=== PATIENT | male | born 1960 | race Caucasian/White ===

== ENCOUNTER → 2024-02-27 13:57 | Outpatient (REF) | payer OTHER, SELFPAY | LOC: CLAB 13:57 | PROVIDERS: ATTENDING PHYSICIAN Otolaryngology | DX: C18.1 Malignant neoplasm of appendix (principal) | CPT/HCPCS: 88305 ==

== ENCOUNTER 2024-04-29 08:48 | Emergency (ER) | payer OTHER, SELFPAY ==
[2024-04-29 09:00] VITALS: BP 126/89
== END 2024-04-29 11:07 ==
LOC: EMR 08:48
PROVIDERS: EMERGENCY PHYSICIAN Student in an Organized Health Care Education/Training Program
DX: I49.1 Atrial premature depolarization (principal); Z53.21 Procedure and treatment not carried out due to patient leaving prior to being seen by health care provider
CPT/HCPCS: 93005

== ENCOUNTER → 2024-05-20 07:06 | Outpatient (REF) | payer OTHER, SELFPAY | LOC: RCS 07:06 | PROVIDERS: ATTENDING PHYSICIAN Nurse Practitioner; FAMILY PHYSICIAN Family Medicine | DX: I48.0 Paroxysmal atrial fibrillation (principal); R42 Dizziness and giddiness | CPT/HCPCS: 93306 ==

== ENCOUNTER 2024-10-12 10:22 | Day surgery (SDC) | payer OTHER, SELFPAY ==
[2024-09-27 08:11] VITALS: BMI 22.8
--- NOTE | 2024-09-27 08:55 | HPS.HSE ---
Family Physician
-
Family Physician: Mary Ken MD
Chief Complaint
-
Paroxysmal atrial fibrillation.
History of Present Illness
The patient is a 63 year old male presenting today for paroxysmal atrial fibrillation. The patient reports symptoms such as disturbing palpitations and occasional shortness of breath likely secondary to this diagnosis. He previously
underwent a cardioversion in 2011 for his arrhythmia. A 5 day Bardy monitor in April 2024 revealed a 2.8% atrial fibrillation burden. He is currently on pharmacological therapy with Diltiazem. He reports compliance with Xarelto for oral
anticoagulation. He notes that his symptoms associated with his atrial fibrillation greatly interfere with his activities of daily living and overall impact his quality of life. He is interested in pursuing pulmonary vein isolation for more
definitive arrhythmia management. He denies any current complaints today such as chest pain, shortness of breath at rest, nausea, vomiting, diarrhea, lightheadedness, dizziness, cough, sore throat, or fever.
Medical History
Past Medical History
Past Medical History: Reports Other
Additional Past Medical History:
1. Paroxysmal atrial fibrillation, status post cardioversion 2011; pharmacological therapy with Diltiazem and oral anticoagulation with Xarelto.
2. PACs.
3. Hypertension.
4. Hyperlipidemia.
5. Coronary artery disease per chest CT 07/2011.
6. Lumbar degenerative disc disease.
7. Squamous cell carcinoma, status post multiple excisions.
8. Current tobacco abuse.
9. Previous daily alcohol use.
Past Surgical History: Reports Other
Additional Past Surgical History:
1. Cardioversion.
2. Squamous cell carcinoma excision x3.
3. Bilateral cataract surgery.
4. Bilateral lens implantation.
5. [place] teeth extraction.
6. Dental extraction.
7. Colonoscopy x2.
Social History
Tobacco: Smoker (He is a current less than 1 pack per day cigarette smoker. He has been smoking over the past 40 years. )
Alcohol: Other (He has a previous history of daily alcohol use. As of today, he reports rare alcohol use. )
Personal:
Living: Other (He lives with his and son in a ranch style home with a basement. )
Family History
Family History: Other (He reportedly has a family history of atrial fibrillation. )
Allergies / Home Medications
Allergy/Medication List:
Home medications:
1. Ascorbic acid 500 mg p.o. daily.
2. Atorvastatin 10 mg p.o. every evening.
3. Cholecalciferol 75 mcg p.o. daily.
4. Diltiazem HCl 120 mg p.o. twice a day.
5. Diltiazem HCl 60 mg p.o. as directed by physician.
6. Lisinopril 20 mg p.o. daily.
7. Multivitamin 1 tablet p.o. daily.
8. Xarelto 20 mg p.o. at bedtime.
Allergies: No known allergies.
Review of Systems
-
A 12 point ROS was completed and negative except as noted: Yes
Physical Exam
Vital Signs
Blood pressure 146/76. Heart rate 68. Respirations 18. Pulse ox 98% on room air.
Height 5 feet, 9 inches. Weight 70.1 kg. BMI 22.8.
Physical Exam
General: Well Developed, Well Nourished and No Apparent Distress
HEENT: NormoCephalic, Moist mucous membranes, Atraumatic and PERRLA
Respiratory: Clear
Cardiac: Regular Rhythm
GI: Soft, Non Tender and Non Distended
Musculoskeletal: No Edema and Normal Gait & Station
Skin: Warm and Dry
Neuro: AO x 3 and Nonfocal/grossly intact
Laboratory Results
-
DIAGNOSTIC STUDIES as of 09/27/2024: White blood cell count 9.0. Hemoglobin 14.5. Platelet count 304,000. PT 16.6. INR 1.31. Sodium 140. Potassium 4.4. BUN 11. Creatinine 0.6. Glucose 92. Calcium 9.6. Magnesium 2.2. AST 23. ALT 20. Albumin 4.5. Type
and screen A positive.
EKG 09/27/2024: Normal sinus rhythm.
Chest CT 09/27/2024: Short segment common vestibule for the left superior and inferior pulmonary veins, fairly commonly seen and considered normal variant. No evidence for left atrial thrombus.
Echocardiogram 05/20/2024: Technically difficult study with poor visualization of the endocardium. Grossly normal left ventricular size and systolic function without regional wall motion abnormalities. Estimated left ventricular ejection fraction is
55 to 60% by visual estimation. No significant valvular abnormalities. No pericardial effusion.
Impression/Plan
-
IMPRESSION/PLAN:
1. Paroxysmal atrial fibrillation: The patient is in need of pulmonary vein isolation with Dr. Corby Johnson on 10/12/2024. The benefits and risks of the procedure have been explained to the patient. The patient understands these risks and wishes to
proceed. He will not be required to undergo a pre-procedural transesophageal echocardiogram as he has been compliant with his home oral anticoagulation. He is aware to continue his Xarelto up until the night prior to his procedure. He will take no
medications the morning of his ablation.
2. Current tobacco abuse: Smoking cessation was provided to the patient pre-operatively. He is aware that continue tobacco use will only induce his atrial fibrillation episodes further. The patient expressed understanding.
[2024-09-27 09:06] LABS: % Basophils 0.6 % (0-2); % Eosinophils 2.7 % (0-6); % Immature Granulocytes 0.4 % (0-0.5); % Lymphocytes 26.9 % (20.5-51.1); % Neutrophils 61.4 % (42.2-75.2); Absolute Basophils 0.1 10^3/uL (0-0.2); Absolute Eosinophils 0.2 10^3/uL (0-0.7); Absolute Lymphocytes 2.4 10^3/uL (1.2-3.4); Absolute Monocytes 0.7 10^3/uL (0.1-0.6); Absolute Neutrophils 5.5 10^3/uL (1.4-6.5); Hematocrit 42.1 % (39.0-52.0); Hemoglobin 14.5 g/dL (13.0-18.0); Mean Corp Hgb Conc. 34.4 g/dL (33.0-37.0); Mean Corpuscular Hgb 32.4 pg (27.0-31.0); Mean Platelet Volume 10.1 fL (7.4-10.4); Nucleated Red Blood Cells % 0 % (-); Platelet Count 304 10^3/uL (130-400); Red Blood Cell Count 4.48 10^6/uL (4.70-6.10); Red Cell Dist. Width 12.6 % (11.5-14.5)
[2024-09-27 09:18] LABS: ALT (SGPT) 20 U/L (0-50); AST (SGOT) 23 U/L (17-59); Albumin 4.5 g/dl (3.5-5.0); Alkaline Phosphatase 98 U/L (38-126); Blood Urea Nitrogen 11 mg/dl (9-20); Calcium 9.6 mg/dl (8.4-10.2); Carbon Dioxide 28 mmol/L (22-30); Chloride 108 mmol/L (98-107); Estimated Creatinine Clearance 123 ml/min; Glucose 92 mg/dl (70-99); Magnesium 2.2 mg/dl (1.6-2.3); Potassium 4.4 mmol/L (3.5-5.1); Sodium 140 mmol/L (135-145); Total Bilirubin 0.7 mg/dl (0.2-1.3); Total Protein 7.1 g/dl (6.3-8.2); eGFR > 60.00
[2024-09-27 09:53] LABS: INR 1.31; PT 16.6 Sec (11.4-14.6)
[2024-10-12] VITALS (11 sets, daily range): BP systolic 119–143; BP diastolic 61–81
[2024-10-12 13:39] LABS: ACT-LR - POC 294 Seconds (116-155)
--- NOTE | 2024-10-12 14:00 | ITS.CL.ABL ---
[facility] - Ablation
Ablation
Procedure Report:
ELECTROPHYSIOLOGY ABLATION STUDY
DATE:: October 12, 2024�����������������������������REFERRING: Dr. Doron Johnson
INDICATION: Paroxysmal supraventricular tachycardia in the form of atrial fibrillation.��Refractory to diltiazem
HISTORY: See H and P.��As above
ANTIARRHYTHMIC DRUG: Diltiazem
PRE-PROCEDURE TERI: No atrial thrombus
PRESENTING RHYTHM: Sinus rhythm
'TIME-OUT':��called and confirmed.
SEDATION/ANESTHESIA:��provided via the anesthesia department using general anesthesia (LMA).
INTRAVENOUS/ARTERIAL ACCESS:
Right femoral venous - 8Fr
Left femoral venous - 8 Fr, 6 Fr
[id number] suture was applied to the right femoral and left femoral veins.
Ultrasound guidance for bilateral femoral vein access was utilized by me to obtain access with demonstration of normal anatomy
CHADS-VASC Score:
HAS-Bled Score
PROCEDURE:
1.��A decapolar CS catheter was placed within the CS for mapping and pacing.��This was also used as the reference catheter for the 3-D map.
2. The intracardiac ultrasound catheter was positioned in the RA to identify the FO for targeting of transseptal puncture, assist��in identification of the pulmonary vein ostia, monitoring pre and post ablation pulmonary vein flow velocities,
monitoring for 'bubble' formation during RF application as a sign of thermal injury,��and to monitor for pericardial effusion during mapping and ablation procedure.���Left atrial size, LV ejection fraction, and pulmonary vein flows were monitored
pre and post ablation procedure. The other valves were inspected and found to be free of significant regurgitation or stenosis.
3.��Half of the calculated heparin bolus was administered prior to the first transeptal puncture.��Transseptal puncture was performed to diagnose RA and LA pressure so that safety of LA mapping and ablation could be further assessed, and to access
the left atrium and pulmonary veins for mapping and ablation.��This entailed advancing an 8 Fr SL-1 sheath with dilator into the superior vena cava and withdrawing both (monitoring intracardiac ultrasound, fluoroscopy and tip pressure) with the tip
oriented toward the atrial septum.��The fossa ovalis was engaged (indicated by sudden displacement of the sheath tip as well as tenting of the fossa seen on intracardiac ultrasound).��Left atrial access required a pass with the [place] needle
extended.��Left atrial catheter position was confirmed by pressure monitoring (RA mean pressure 4 mm Hg and LA mean presure 8 mm Hg), LA saturation (99%),��as well as fluoroscopy.��The sheath was advanced over the dilator and positioned in the left
atrium.��This procedure was repeated for the Agilis sheath.��The remainder of the calculated heparin bolus was administered and heparin was
infused to maintain ACT at 300 -350 seconds throughout the case.
4.��RA pacing was performed via the proximal decapolar poles and LA pacing was performed via the distal decapolar poles.
5. A quadrapolar catheter was first positioned at the His position for His Bundle recording which was tagged via the 3-D Navex sytem, and then passed to the RVA for RV pacing and recording.
6. The grid catheter and the Penta spline catheter were placed in each of the LIPV, LSPV, RSPV and the RIPV.��
7.��Next, a 3-D map was created using Navex.���A 3-D reconstructed CT image was compared to the 3-D Navex map to assist in anatomic interpretation, mapping and ablation.��The CT image and the NavX image were fused.
8. 49 lesions were given in all of in basket post each of the 4 pulmonary veins and flower post to the roofline posterior wall substrate and floor line in the left atrium. Entrance and exit block was confirmed in sinus rhythm in all 4 pulmonary
veins as well as the roof posterior wall and floor proper. EP study post isolation did not demonstrate any inducible tachyarrhythmias.
9. Normal sinus node even function noted.
TOTAL FLOURO TIME: 12.1 minutes 120 mGy
TOTAL RF DURATION: 0 minutes
REVERSAL OF HEPARIN: 30 mg of protamine, slow IV administration
COMPLICATIONS:
None
Intracardiac US shows no pericardial effusion post ablation.
SUMMARY:��
Complex left atrial mapping and ablation.
Isolation of all 4 pulmonary veins as well as the roof posterior wall and floor line in the left atrium.
RECOMMENDATIONS:
1. Ambulate in 4 hours
2. Resume anticoagulation
3.��Consider same-day discharge
4.��Continue diltiazem. Also performed tobacco cessation counseling to the patient as he is smoking 1/2 pack a day of cigarettes
Copy to: Dr. Doron Johnson
--- NOTE | 2024-10-12 17:29 | W.PN.UPDATE ---
Update Note
Progress Note Update
Pt seen post PFA. Bilat groin sites without ht/bleeding, non tender. Post EKG NSR 75, no acute changes. Resume xarelto tonight. Followup with Dr. Johnson as scheduled. Home later today if groin sites/tele remain stable.
== END 2024-10-12 19:00 | disposition home or self-care (01) ==
LOC: CATH 10:22
PROVIDERS: ATTENDING PHYSICIAN Internal Medicine Cardiovascular Disease; FAMILY PHYSICIAN Family Medicine
DX: I48.0 Paroxysmal atrial fibrillation (principal); I47.19 Other supraventricular tachycardia; I10 Essential (primary) hypertension; I25.10 Atherosclerotic heart disease of native coronary artery without angina pectoris; F17.210 Nicotine dependence, cigarettes, uncomplicated; E78.5 Hyperlipidemia, unspecified; M51.369 Other intervertebral disc degeneration, lumbar region without mention of lumbar back pain or lower extremity pain; Z79.01 Long term (current) use of anticoagulants; Z79.899 Other long term (current) drug therapy
CPT/HCPCS: C1732; C1894; C1730; C1892; 36415; 75572; 80053; 83735; 85025; 85347; 85610; 86850; 86900; 86901; 93005; 93656; C1733; C1766; Q9967